=== PATIENT | male | born 1950 | race Caucasian/White ===

== ENCOUNTER 2018-07-29 17:45 | Observation (INO) ==
[2018-07-29 18:26] LABS: Basophils % 0.6 % (0.0-0.8); Eosinophils # 0.3 10*3/uL (0.0-0.87); Eosinophils % 4.6 % (0.00-10.9); Hematocrit 39.1 VOL% (42.0-52.0); Hemoglobin 13.4 GM/DL (14.0-18.0); Immature Granulocytes % 0.3 %; Immature Granulocytes Absolute 0.02 #; Lymphocytes # 1.5 10*3/uL (1.4-4.0); Lymphocytes % 23.6 % (21.2-54.2); Mean Corpuscular HGB Conc 34.3 GM/DL (32-36); Mean Corpuscular Hemoglobin 33 PG (27-34); Mean Corpuscular Volume 96.5 FL (87-102); Mean Platelet Volume 11.4 FL (9.6-12.0); Monocytes # 0.7 10*3/uL (0.11-0.8); Monocytes % 10.4 % (1.7-12.7); Neutrophils # 3.8 10*3/uL (1.4-7.4); Neutrophils % 60.5 % (38.7-73.9); Platelet Count 160 T/CUMM (130-400); Red Blood Count 4.05 MC/CUMM (3.8-5.5); Red Cell Distribution Width 12.9 % (9.3-17.3); White Blood Count 6.4 T/CUMM (4-12)
[2018-07-29] MEDS ORDERED: SODIUM CHLORIDE 0.9% 500 ML IV STA (18:43)
[2018-07-29 18:50] LABS: Albumin 4.3 G/DL (3.4-5.0); Bilirubin,Total 0.6 MG/DL (0.2-1.0); Osmolality,Calculated 282.8 MOS/KG (273-304); Potassium 4.2 MMOL/L (3.5-5.1); Total Protein 8.2 G/DL (6.4-8.3)
[2018-07-29] MEDS ORDERED: MECLIZINE 25 MG TABLET PO STA (19:59)
[2018-07-29] MEDS ORDERED: ASPIRIN 325 MG TABLET PO STA (20:14)
[2018-07-29] MEDS ORDERED: ONDANSETRON 4 MG/2 ML VIAL IV PRN (20:30)
[2018-07-29] MEDS ORDERED: ACETAMINOPHEN 325 MG TABLET PO PRN (20:30)
[2018-07-29] MEDS ORDERED: MECLIZINE 25 MG TABLET PO PRN (20:30)
[2018-07-29] MEDS ORDERED: BISACODYL 5 MG TABLET PO PRN (20:30)
[2018-07-29] MEDS ORDERED: PROMETHAZINE 25 MG/1 ML VIAL IM PRN (20:30)
[2018-07-29] MEDS ORDERED: diphenhydrAMINE CAP 25 MG CAPSULE PO PRN (20:30)
[2018-07-29] MEDS ORDERED: NICOTINE 21 MG/24 HR PATCH TRANSDERM PRN (20:30)
[2018-07-29] MEDS ORDERED: SODIUM CHLORIDE 0.9% 1,000 ML IV SCH (20:30)
[2018-07-29] MEDS ORDERED: MORPHINE 4 MG/1 ML VIAL IV PRN (20:30)
[2018-07-29 21:00] LABS: Risk Ratio 4.93; Thyroid Stimulating Hormone 1.38 uIU/ml (0.358-3.74); VLDL CHOLESTEROL 38.6 MG/DL
[2018-07-29] MEDS ORDERED: NIFEdipine CC 60 MG TABLET PO SCH (22:15)
[2018-07-29] MEDS ORDERED: ATORVASTATIN 40 MG TABLET PO SCH (22:30)
[2018-07-30] MEDS ORDERED: ASPIRIN 325 MG TABLET PO ONE (00:14)
[2018-07-30] MEDS: APIXABAN 5 MG TABLET PO SCH ×2 (00:29→09:17)
[2018-07-30 06:01] LABS: Basophils % 0.7 % (0.0-0.8); Eosinophils # 0.3 10*3/uL (0.0-0.87); Eosinophils % 4.1 % (0.00-10.9); Hematocrit 38.4 VOL% (42.0-52.0); Hemoglobin 12.8 GM/DL (14.0-18.0); Immature Granulocytes % 0.3 %; Immature Granulocytes Absolute 0.02 #; Lymphocytes # 1.8 10*3/uL (1.4-4.0); Mean Corpuscular HGB Conc 33.3 GM/DL (32-36); Mean Corpuscular Hemoglobin 33 PG (27-34); Mean Platelet Volume 11.6 FL (9.6-12.0); Monocytes # 0.5 10*3/uL (0.11-0.8); Monocytes % 8.6 % (1.7-12.7); Neutrophils # 3.5 10*3/uL (1.4-7.4); Neutrophils % 57.3 % (38.7-73.9); Platelet Count 142 T/CUMM (130-400); Red Blood Count 3.92 MC/CUMM (3.8-5.5); Red Cell Distribution Width 12.8 % (9.3-17.3); White Blood Count 6.1 T/CUMM (4-12)
[2018-07-30 06:13] LABS: Calcium 8.6 MG/DL (8.5-10.1); Osmolality,Calculated 283.7 MOS/KG (273-304); Potassium 4.1 MMOL/L (3.5-5.1); Total Protein 7.3 G/DL (6.4-8.3)
[2018-07-30] MEDS ORDERED: LOSARTAN 50 MG TABLET PO SCH (09:00)
[2018-07-30] MEDS ORDERED: ASPIRIN EC 81 MG TABLET PO SCH (09:00)
[2018-07-30] MEDS ORDERED: ALLOPURINOL 300 MG TABLET PO SCH (09:00)
[2018-07-30] MEDS ORDERED: PANTOPRAZOLE 40 MG TABLET PO SCH (09:00)
[2018-07-30] MEDS ORDERED: NON-FORMULARY MEDICATION (Fluticasone Propionate [Flovent 250 Mcg Diskus] 250 MCG) INH SCH (09:00)
[2018-07-30] MEDS ORDERED: FUROSEMIDE 40 MG TABLET PO SCH (09:00)
[2018-07-30] MEDS ORDERED: MONTELUKAST 10 MG TABLET PO SCH (09:00)
[2018-07-30 12:17] VITALS: BP 159/76
[2018-07-30] MEDS ORDERED: NIFEdipine CC 60 MG TABLET PO SCH (21:00)
== END 2018-07-30 15:07 | disposition home or self-care (01) ==
LOC: N.ED 17:45 → N.EDINP 17:45 → N.5E 21:00
PROVIDERS: ADMIT Internal Medicine Geriatric Medicine; ATTEND Internal Medicine Geriatric Medicine

== ENCOUNTER 2021-03-23 05:22 | Observation (INO) ==
[~2021-03-23 05:22] MED LIST: ACETAMINOPHEN 500 MG TABLET PO ONE; DIAZEPAM 5 MG TABLET PO ONE; FAMOTIDINE 20 MG TABLET PO ONE; GABAPENTIN 400 MG CAPSULE PO ONE; LACTATED RINGERS 1,000 ML IV SCH
[2021-03-23] MEDS ORDERED: DIAZEPAM 5 MG TABLET ONE (06:33)
[2021-03-23] MEDS ORDERED: FAMOTIDINE 20 MG TABLET ONE (06:34)
[2021-03-23] MEDS ORDERED: GABAPENTIN 400 MG CAPSULE ONE (06:35)
[2021-03-23] MEDS ORDERED: ACETAMINOPHEN 500 MG TABLET ONE (06:35)
[2021-03-23] MEDS ORDERED: cefTRIAXone 1,000 MG in SODIUM CHLORIDE 0.9% 100 ML IV ONE (07:00)
[2021-03-23] MEDS ORDERED: SODIUM PHOSPHATE ENEMA 133 ML BOTTLE RECTAL ONE (07:00)
[2021-03-23] MEDS ORDERED: ALVIMOPAN 12 MG CAPSULE PO ONE (07:00)
[2021-03-23] MEDS ORDERED: fentaNYL 100 MCG/2 ML VIAL ONE (07:09)
[2021-03-23] MEDS ORDERED: MIDAZOLAM 2 MG/2 ML VIAL ONE (07:09)
[2021-03-23] MEDS ORDERED: PHENYLEPHRINE 1 MG/10 ML SYRINGE IV ONE (08:12)
[2021-03-23] MEDS ORDERED: propofoL 200 MG/20 ML VIAL IV ONE (08:12)
[2021-03-23] MEDS ORDERED: ROCURONIUM 50 MG/5 ML VIAL IV ONE ×2 (08:12→09:11)
[2021-03-23] MEDS ORDERED: LIDOCAINE 2% 5 ML VIAL ONE (08:12)
[2021-03-23] MEDS ORDERED: SEVOFLURANE 1 UNIT/15 MINUTE INH ONE ×17 (08:13→11:25)
[2021-03-23] MEDS ORDERED: LACTATED RINGERS 0 ML IV ONE (08:13)
[2021-03-23] MEDS ORDERED: PHENYLEPHRINE 10 MG/1 ML VIAL IV ONE (08:13)
[2021-03-23] MEDS ORDERED: ONDANSETRON 4 MG/2 ML VIAL ONE (10:08)
[2021-03-23] MEDS ORDERED: SODIUM CHLORIDE 0.9% 250 ML IV ONE (11:07)
[2021-03-23] MEDS ORDERED: LACTATED RINGERS 1,000 ML IV ONE (11:07)
[2021-03-23] MEDS ORDERED: GLYCOPYRROLATE 0.4 MG/2 ML VIAL ONE (11:24)
[2021-03-23] MEDS ORDERED: oxyCODONE/ACETAMINOPHEN 5-325 MG TABLET PO PRN (11:25)
[2021-03-23] MEDS ORDERED: ONDANSETRON 4 MG/2 ML VIAL IV PRN ×2 (11:25→11:50)
[2021-03-23] MEDS ORDERED: NEOSTIGMINE 10 MG/10 ML VIAL ONE (11:25)
[2021-03-23] MEDS ORDERED: diphenhydrAMINE 50 MG/1 ML VIAL IV PRN (11:25)
[2021-03-23] MEDS ORDERED: HYDROmorphone 2 MG/1 ML VIAL IV PRN (11:28)
[2021-03-23] MEDS ORDERED: LACTATED RINGERS 2,000 ML IV ONE (11:28)
[2021-03-23] MEDS ORDERED: DEXTROMETHORPHAN GUAIFENESIN PO PRN (11:31)
[2021-03-23] MEDS ORDERED: NITROGLYCERIN SL 0.4 MG TABLET SL PRN (11:31)
[2021-03-23 11:39] LABS: Bilirubin,Urine Negative (Negative); Blood, Urine Small mg/dL (Negative); Glucose,Urine (UA) Negative (Negative); Ketones,Urine Negative (Negative); Mucus,Urine Occasional /LPF (Occasional); Nitrite,Urine Negative (Negative); Protein,Urine Negative; RBC,Urine 16 /HPF (0-4); Urine Appearance CLEAR (Clear); Urine Color Yellow (Yellow); Urine Specific Gravity 1.017 (1.001-1.035); Urine Urobilinogen < 2.0 EU/DL (0.2-1.0)
[2021-03-23] MEDS ORDERED: FUROSEMIDE 20 MG/2 ML VIAL IV ONE (11:53)
[2021-03-23] MEDS: HYDROmorphone 2 MG/1 ML VIAL IV PRN ×2 (11:57→12:02)
[2021-03-23] MEDS ORDERED: BENZONATATE 100 MG CAPSULE PO PRN (13:30)
[2021-03-23] MEDS: OXYBUTYNIN XL 10 MG TABLET PO SCH (13:45)
[2021-03-23] MEDS: SODIUM CHLORIDE 0.9% 1,000 ML IV SCH ×2 (13:45→23:29)
[2021-03-23] MEDS ORDERED: DEXTROSE 50% 25 GM/50 ML VIAL IV PRN (16:42)
[2021-03-23] MEDS ORDERED: GLUCAGON 1 MG VIAL IM PRN (16:42)
[2021-03-23] MEDS: metFORMIN 500 MG TABLET PO SCH (17:23)
[2021-03-23] MEDS ORDERED: DULoxetine 30 MG CAPSULE PO SCH (21:00)
[2021-03-23] MEDS ORDERED: allopurinoL 300 MG TABLET PO SCH (21:00)
[2021-03-23] MEDS: ALVIMOPAN 12 MG CAPSULE PO SCH (21:02)
[2021-03-23] MEDS: gemfibroziL 600 MG TABLET PO SCH (21:02)
[2021-03-23] MEDS ORDERED: ACETAMINOPHEN 325 MG TABLET PO PRN (23:39)
[2021-03-24 05:38] LABS: Basophils % 0.4 % (0.0-0.8); Eosinophils # 0.1 10*3/uL (0.0-0.87); Eosinophils % 0.9 % (0.00-10.9); Hematocrit 36.1 VOL% (42.0-52.0); Hemoglobin 11.3 GM/DL (14.0-18.0); Immature Granulocytes % 0.7 %; Immature Granulocytes Absolute 0.07 #; Lymphocytes # 1.4 10*3/uL (1.4-4.0); Lymphocytes % 13.3 % (21.2-54.2); Mean Corpuscular HGB Conc 31.3 GM/DL (32-36); Mean Corpuscular Volume 94.3 FL (87-102); Mean Platelet Volume 11.8 FL (9.6-12.0); Monocytes % 9.8 % (1.7-12.7); Neutrophils % 74.9 % (38.7-73.9); Platelet Count 143 T/CUMM (130-400); Red Blood Count 3.83 MC/CUMM (3.8-5.5); Red Cell Distribution Width 15.6 % (9.3-17.3); White Blood Count 10.1 T/CUMM (4-12)
[2021-03-24 06:12] LABS: Calcium 8.3 MG/DL (8.5-10.1); Osmolality,Calculated 280.7 MOS/KG (273-304); Potassium 3.9 MMOL/L (3.5-5.1)
[2021-03-24] MEDS ORDERED: PANTOPRAZOLE 40 MG TABLET PO SCH (09:00)
[2021-03-24] MEDS ORDERED: CETIRIZINE 10 MG TABLET PO SCH (09:00)
[2021-03-24] MEDS ORDERED: NEBIVOLOL 10 MG TABLET PO SCH (09:00)
[2021-03-24] MEDS ORDERED: SPIRONOLACTONE 25 MG TABLET PO SCH (09:00)
[2021-03-24] MEDS ORDERED: CHOLECALCIFEROL 1,000 UNIT TABLET PO SCH (09:00)
[2021-03-24] MEDS ORDERED: LOSARTAN 50 MG TABLET PO SCH (09:00)
[2021-03-24] MEDS ORDERED: ATORVASTATIN 20 MG TABLET PO SCH (09:00)
[2021-03-24] MEDS: OXYBUTYNIN XL 10 MG TABLET PO SCH (09:13)
[2021-03-24] MEDS: ALVIMOPAN 12 MG CAPSULE PO SCH (09:13)
[2021-03-24] MEDS: gemfibroziL 600 MG TABLET PO SCH (09:14)
[2021-03-24] MEDS: metFORMIN 500 MG TABLET PO SCH (09:55)
[2021-03-24] MEDS: SODIUM CHLORIDE 0.9% 1,000 ML IV SCH (10:25)
[2021-03-24 11:53] VITALS: BP 140/96
== END 2021-03-24 12:00 | disposition home or self-care (01) ==
LOC: N.SDSINP 05:22 → N.OR 05:22 → N.SDSINP 05:29 → N.3E 13:09
PROVIDERS: ADMIT Urology; ATTEND Urology